=== PATIENT | female | born 1995 | race Caucasian/White ===

== ENCOUNTER 2017-07-09 20:27 | Emergency (ER) | payer BC ==
[~2017-07-09] VITALS: Ht 177.8 cm; Wt 72.6 kg
[2017-07-09 22:46] VITALS: BP 125/69
== END 2017-07-09 22:46 | disposition home or self-care (01) ==
LOC: ED 20:27
DX: S05.02XA Injury of conjunctiva and corneal abrasion without foreign body, left eye, initial encounter (principal); S05.01XA Injury of conjunctiva and corneal abrasion without foreign body, right eye, initial encounter; H10.9 Unspecified conjunctivitis; X58.XXXA Exposure to other specified factors, initial encounter; Y93.89 Activity, other specified; Y92.89 Other specified places as the place of occurrence of the external cause; Y99.8 Other external cause status